=== PATIENT | female | born 1955 | race Caucasian/White ===

== ENCOUNTER 2017-02-19 10:09 | Inpatient (IN) ==
[2017-02-14 12:14] LABS: Appearance,Urine CLEAR; Bacteria,Urine 0 /hpf (0); Bilirubin,Urine NEG (NEG); Color,Urine YELLOW; Glucose,Urine (UA) NEGATIVE (NEG); Leukocyte Esterase,Urine 75 /uL (NEG); Nitrate,Urine NEG (NEG); Protein,Urine NEG (NEG); Specific Gravity,Urine 1.004 (1.000-1.035); Urine Blood NEG mg/dL (<0.03); Urine RBC 0 /hpf (0-1); Urine Squamous Epithelial Cell 1 /hpf (0-4); Urine Transitional Epi Cells < 1 /hpf (0-2); Urine WBC 5 /hpf (0-4); Urobilinogen,Urine NEG (NEG)
[2017-02-14 13:04] LABS: Basophils # (Auto) 0.1 K/mcL (0.0-0.3); Basophils % (Auto) 0.9 % (0.0-2.0); Eosinophils # (Auto) 0.7 K/mcL (0.0-0.7); Eosinophils % (Auto) 11.5 % (0.0-7.0); Granulocytes % (Auto) 54.1 % (38.0-78.0); Lymphocytes # (Auto) 1.7 K/mcL (1.5-4.8); Lymphocytes % (Auto) 26.6 % (15.5-49.0); Mean Cell Volume 93.2 fL (80.0-100.0); Mean Corpuscular HGB Conc 33.4 g/dL (31.0-36.0); Mean Corpuscular Hemoglobin 31.2 pg (26.0-34.0); Monocytes # (Auto) 0.4 K/mcL (0.1-0.9); Monocytes % (Auto) 6.9 % (1.0-12.0); Platelet Count 334 K/mcL (140-440); RBC 4.97 M/mcL (4.00-5.20); Red Cell Distribution Width 13.8 % (11.5-14.5)
[2017-02-14 13:16] LABS: Blood Urea Nitrogen 10 mg/dl (8-23)
[~2017-02-19 10:09] MED LIST: PREGABALIN 75 MG CAPSULE PO SCH; ceFAZolin 1 GM VIAL IV SCH; oxyCODONE 10 MG TAB.ER.12H PO SCH
[2017-02-19 11:49] LABS: Appearance,Urine CLEAR; Bilirubin,Urine NEG (NEG); Color,Urine YELLOW; Glucose,Urine (UA) NEGATIVE (NEG); Leukocyte Esterase,Urine NEG /uL (NEG); Nitrate,Urine NEG (NEG); Protein,Urine NEG (NEG); Specific Gravity,Urine 1.015 (1.000-1.035); Urine Blood NEG mg/dL (<0.03); Urobilinogen,Urine NEG (NEG)
[2017-02-19] MEDS ORDERED: SCOPOLAMINE 1 PATCH PATCH TOPICAL ONE (14:01)
[2017-02-19] MEDS ORDERED: MIDAZOLAM 5 MG/5 ML VIAL IV ONE (14:05)
[2017-02-19] MEDS ORDERED: ePHEDrine 50 MG/ML AMPUL IV ONE (14:05)
[2017-02-19] MEDS ORDERED: TRANEXAMIC ACID 1,000 MG/10 ML VIAL IV ONE ×2 (14:05→15:56)
[2017-02-19] MEDS ORDERED: PHENYLEPHRINE 10 MG/ML VIAL IV ONE (14:05)
[2017-02-19] MEDS ORDERED: BUPIVACAINE PF 0.5% 30 ML VIAL IJ ONE (14:05)
[2017-02-19] MEDS ORDERED: PROPOFOL 200 MG/20 ML VIAL IV ONE (14:05)
[2017-02-19] MEDS ORDERED: ONDANSETRON 4 MG/2 ML VIAL IV ONE (14:05)
[2017-02-19] MEDS ORDERED: EPINEPHrine 1 MG/ML AMPUL IV ONE (14:05)
[2017-02-19] MEDS ORDERED: DEXAMETHASONE 10 MG/ML VIAL IV ONE (14:05)
[2017-02-19] MEDS ORDERED: LIDOCAINE HCL/PF 100 MG/5 ML SYRINGE IV ONE (14:05)
[2017-02-19] MEDS ORDERED: GENTAMICIN SULFATE 800 MG/20 ML VIAL IR ONE (14:55)
[2017-02-19] MEDS ORDERED: MEPERIDINE 25 MG/ML SYRINGE IV PRN (15:26)
[2017-02-19] MEDS ORDERED: NALOXONE HCL 0.4 MG/ML VIAL IV PRN (15:26)
[2017-02-19] MEDS ORDERED: ONDANSETRON 4 MG/2 ML VIAL IV PRN ×2 (15:26→15:56)
[2017-02-19] MEDS ORDERED: LACTATED RINGERS 250 ML IV PRN (15:26)
[2017-02-19] MEDS ORDERED: PROMETHAZINE 25 MG/ML VIAL IV PRN (15:26)
[2017-02-19] MEDS ORDERED: IPRATROPIUM/ALBUTEROL 3 ML AMPUL.NEB NEB PRN (15:26)
[2017-02-19] MEDS ORDERED: ACETAMINOPHEN 1,000 MG/100 ML BOTTLE IV ONE (15:26)
[2017-02-19] MEDS ORDERED: FLUMAZENIL 0.1 MG/ML ML IV PRN (15:26)
[2017-02-19] MEDS ORDERED: fentaNYL 100 MCG/2 ML VIAL IV PRN (15:26)
[2017-02-19] MEDS ORDERED: LACTATED RINGERS 1,000 ML IV SCH (15:30)
[2017-02-19] MEDS ORDERED: KETOROLAC 30 MG, ROPIVACAINE HCL/PF 49.5 ML, EPINEPHrine 0.5 MG, 0.9 % SODIUM CHLORIDE ... IJ ONE (15:45)
[2017-02-19] MEDS ORDERED: FEXOFENADINE 180 MG TABLET PO PRN (15:52)
--- NOTE | 2017-02-19 15:52 | Brief Operative Note ---
Date of procedure: 02/19/17 Pre-op diagnosis: right knee oa Post-op diagnosis: same Procedure: right total knee arthroplasty Grafts/Implants: Yes Anesthesia: spinal Complications: none Surgeon: Ashwin Null Fuel Technician: Susan Shaikh Estimated blood loss (cc): 150 Tourniquet Time (Minutes): 56 Specimens Removed/Pathology: none sent Condition: stable Disposition: PACU
[2017-02-19] MEDS ORDERED: BENZOCAINE/MENTHOL 1 LOZENGE PO PRN (15:56)
[2017-02-19] MEDS ORDERED: FLEETS ADULT ENEMA PR PRN (15:56)
[2017-02-19] MEDS ORDERED: MAGNESIUM HYDROXIDE 30 ML ORAL.SUSP PO PRN (15:56)
[2017-02-19] MEDS ORDERED: HYDROcodone/APAP 10/325MG TABLET PO PRN (15:56)
[2017-02-19] MEDS ORDERED: POLYETHYLENE GLYCOL 3350 17 GM PACKET PO PRN (15:56)
[2017-02-19] MEDS ORDERED: ONDANSETRON ODT 4 MG TABLET SL PRN (15:56)
[2017-02-19] MEDS ORDERED: BISACODYL 10 MG SUPP.RECT PR PRN (15:56)
--- NOTE | 2017-02-19 16:10 | Operative Note ---
DATE OF OPERATION: 02/19/2017 PREOPERATIVE DIAGNOSIS: Degenerative joint disease, right knee. POSTOPERATIVE DIAGNOSIS: Degenerative joint disease, right knee. PROCEDURE: Right total knee arthroplasty. SURGEON: Chuy Null M.D. FIREFIGHTING EQUIPMENT SPECIALIST SURGEON: Susan Shaikh PA-C. ANESTHESIA: Spinal with LMA assist. ESTIMATED BLOOD LOSS: 150 mL. COMPLICATIONS: None noted. SPECIMENS REMOVED: None. DRAINS: None. TOURNIQUET TIME: 56 minutes at 300 mmHg. IMPLANTS: DePuy CMW2 bone cement 20 grams x4; DePuy Attune femoral posterior stabilized size 6, right narrow; DePuy Attune tibial base fixed bearing size 5 cemented; DePuy tibial insert fixed bearing posterior stabilized size 6, 5 mm AOX; DePuy patellar medialized dome 38 mm cemented AOX. INDICATIONS: The patient has had a long-standing history of worsening pain in the knee that has failed conservative treatment. Radiographs have confirmed advanced degenerative joint disease. After a long discussion about treatment options, the patient elected to proceed with a knee arthroplasty. The risks and benefits were discussed with the patient in detail including, but not limited to, the risks of anesthesia, problems with the heart or lungs related to anesthesia, infection, compromise or injury to the nerves and blood vessels, deep venous thrombosis, pulmonary embolism, pneumonia, continued pain after surgery, worsening pain or symptoms after surgery, swelling, loss of motion, instability, leg length discrepancy, and need for repeat surgery. DESCRIPTION OF PROCEDURE: The patient was seen in the pre-anesthesia waiting room where all questions were answered and the correct side and site were identified and marked. The patient was transferred to the operating room and administered the anesthetic and given pre-operative antibiotics. A time-out was then called. The extremity was prepped and draped, exsanguinated, and the tourniquet was inflated to 300 mmHg. A midline skin incision was then made with a standard medial parapatellar arthrotomy. Debridement of the menisci, ACL, and PCL was performed followed by balancing releases in the medial lateral plane. We then established intramedullary access to both the femur and tibia in a standard fashion. The femoral guide chet was initially placed with the distal femoral guide, pinned into place, and the distal femoral cut was performed and checked with a flat plate. We then turned our attention to the tibia. The intramedullary guide was placed with the proximal tibial cutting block. The block was appropriately positioned off the affected side, varus and valgus was checked with the extra-medullary guide, and the block was pinned into place. The proximal tibial cut was performed and the tibia was prepared for the tibial implant with appropriate rotation. The tibia, femur, and posterior compartment were debrided of osteophytes, loose bodies, and meniscal fragments We then used the gap balancing technique to balance extension with the first two cuts and good balancing was obtained with a 10 millimeter gap block. We turned our attention back to the femur and used the referencing block and implant to size appropriately. Using the gap balancing technique for the flexion space we set our rotation of the femur off the tibial cut. Anesthesia gave the patient 1 gram of Tranexamic Acid via an intravenous route. We placed the 4 in 1 cutting block and made anterior, posterior, and chamfer cuts. Box plasty cuts were then made in a standard fashion for the posterior stabilized prosthesis. We then completed osteophyte release and posterior capsule release from the posterior compartment. Trials were placed and we chose the polyethylene insert thickness that provided the best stability in all planes. With the trials in place, we did a measured resection for a resurfacing patella. We sized the patella and placed the patella trial and performed a lateral facetectomy with the saw and rongeur. Good tracking was obtained. We removed all trials, irrigated and dried all cut surfaces. We cemented the components into place including tibia, femur and patella. We placed a trial liner and held the knee in full extension with the patella compressed while the cement cured. We then removed all excess cement and placed the final polyethylene tibiofemoral component. Irrigation with 3 liters of antibiotic saline was then performed using jet-lavage. We let the tourniquet down and coagulated bleeding vessels. We injected a 100 cubic centimeter volume including Ropivacaine 49.25 cubic centimeters at 5 milligrams per cubic centimeter, Ketorolac 30 milligrams, and Epinephrine 0.5 milligrams into 100 cubic centimeters volume of normal saline. We closed the retinaculum with #2 Stratafix. We closed the subcutaneous tissue and skin in layers out to ezra in the skin. A sterile pressure dressing was applied. All needle and sponge counts were correct. The patient was transferred to the recovery room in stable condition. [place]:geri Job ID: [id number] Doc ID: [id number] Chuy Null MD
--- NOTE | 2017-02-19 16:52 | XRay Report ---
CLINICAL INFORMATION: Postop total knee prostheses COMPARISON: None. FINDINGS: Total knee prostheses is anatomically aligned. No osseous abnormality. Periarticular gas and soft tissue swelling seen - as expected. IMPRESSION: Negative Interpreted and Authenticated by: Ashwin Pierson 02/19/17
[2017-02-19] MEDS: KETOROLAC 15 MG/ML VIAL IV SCH ×2 (17:31→23:58)
[2017-02-19] MEDS: 0.9 % SODIUM CHLORIDE 1,000 ML IV SCH (17:32)
[2017-02-19] MEDS: HYDROmorphone 2 MG/ML SYRINGE IV PRN ×2 (17:41→21:34)
[2017-02-19] MEDS ORDERED: SENNOSIDES 1 TABLET PO SCH (21:00)
[2017-02-19] MEDS: ASPIRIN 325 MG ENTERIC COATED TABLET PO SCH (21:21)
[2017-02-19] MEDS: DOCUSATE SODIUM 100 MG CAPSULE PO SCH (21:21)
[2017-02-19] MEDS: CLINDAMYCIN 900 MG in 0.9 % SODIUM CHLORIDE 50 ML IV SCH (21:21)
[2017-02-19] MEDS: 0.9 % SODIUM CHLORIDE 10 ML SYRINGE IV SCH (21:39)
[2017-02-20] MEDS: 0.9 % SODIUM CHLORIDE 1,000 ML IV SCH ×2 (00:54→07:33)
[2017-02-20] MEDS: HYDROmorphone 2 MG/ML SYRINGE IV PRN ×2 (01:37→05:02)
[2017-02-20] MEDS: METHOCARBAMOL 750 MG TABLET PO PRN ×2 (05:02→11:02)
[2017-02-20] MEDS: KETOROLAC 15 MG/ML VIAL IV SCH ×2 (05:55→12:18)
[2017-02-20] MEDS: CLINDAMYCIN 900 MG in 0.9 % SODIUM CHLORIDE 50 ML IV SCH (05:55)
[2017-02-20] MEDS: 0.9 % SODIUM CHLORIDE 10 ML SYRINGE IV SCH ×2 (05:55→12:20)
--- NOTE | 2017-02-20 06:38 | Discharge Summary ---
Providers - Providers Patient information: Note initiated : 02/20/17 at 6:35 am Service Date, if different from initiated Date: [] Patient: Юлия Briggs 61 y/o F admitted on 02/19/17 for Right Total Knee Arthroplasty. Chief Complaint: [s/p right knee TKA] POD #1 s/p right TKA. Patient doing well this morning. Ambulated to the bathroom ok. Has been using the CPM machine as well. She reports minimal pain at this time and denies numbness and tingling in either lower extremity. Patient also denies chest pain, SOB, calf pain. No questions or concerns this morning. Discharge date: 02/20/17 Hospitalization Hospital course: Patient was brought to the OR yesterday for a right TKA. She was admitted overnight for pain control and observation. She has stayed for a total of one night without event or complication. Planning to d/c to home today in fair/good condition and will follow up in two weeks in the clinic postoperatively. Discharge diagnosis: knee osteoarthritis Exam - Exam Incision healing: Yes Incision draining: No Incision red: No Incision swollen: No Incision inflamed: No Clean and dry: Yes Weight bearing status: as tolerated (with assistive device) Range of motion: Full AROM left knee, b/l ankles and feet. Right knee 5 ext/30 fln Ortho Discharge - TKA - Patient Instructions Diet: Regular Diet Activity: activity as tolerated, ambulate with assistive device, weight bearing as tolerated Total Knee Protocol: For Total Knee: Start ROM CULLEN with stationary bike or rocking chair. Work on gaining full extension of knee. Posterior dislocation precautions provided. Hip abductor strengthening and gait training instructions provided. Apply Cryocuff as instructed. Dressing Care: Other (May shower tomorrow. Remove MATT wrap and gauze, leave Dermabond in place. Let water run off, pat dry, replace gauze and MATT) - Follow Up Plan Follow Up Appointments: Susan Shaikh PA-C [Physician [employer]] - 03/06/17 10:00 am Disposition: Home, Self-Care Prognosis: Fair Rehab Potential: Fair Overall status at discharge: patient is progressing back to baseline - Orders For Discharge Prescriptions: Aspirin [Ecotrin] 325 mg PO BID #60 tab.ec Methocarbamol [Robaxin] 750 mg PO Q6HP PRN #30 tab PRN Reason: Muscle Spasm Pending Studies Resuscitation Status Full Code Diet Regular Diet Start SatFeb 19 Dinner Aspirin (Ecotrin) 325 mg PO BID [facility] Last Admin: 02/19/17 21:21 Dose: 325 mg Docusate Sodium (Colace) 100 mg PO BID [facility] Last Admin: 02/19/17 21:21 Dose: 100 mg Hydromorphone HCl (Dilaudid) 0 mg IV Q2HP PRN PRN Reason: PAIN LEVEL > 6 Last Admin: 02/20/17 05:02 Dose: 1 mg Admin: 02/20/17 01:37 Dose: 1 mg Admin: 02/19/17 21:34 Dose: 1 mg Admin: 02/19/17 17:41 Dose: 1 mg Sodium Chloride (Sodium Chloride 0.9%) 1,000 mls @ 125 mls/hr IV .Q8H [facility] Last Admin: 02/20/17 00:54 Dose: Not Given Admin: 02/19/17 17:32 Dose: 125 mls/hr Ketorolac Tromethamine (Toradol) 15 mg IV Q6 [facility] Stop: 02/21/17 12:01 Last Admin: 02/20/17 05:55 Dose: 15 mg Admin: 02/19/17 23:58 Dose: 15 mg Admin: 02/19/17 17:31 Dose: 15 mg Methocarbamol (Robaxin) 750 mg PO Q6HP PRN PRN Reason: Muscle Spasm Last Admin: 02/20/17 05:02 Dose: 750 mg Senna (Senokot) 2 tab PO HS [facility] Last Admin: 02/19/17 21:21 Dose: 2 tab Sodium Chloride (Saline Flush) 10 ml IV Q8 [facility] Last Admin: 02/20/17 05:55 Dose: 10 ml Admin: 02/19/17 21:39 Dose: 10 ml Shift Summary 02/20/17 03:41 Shift Summary by Amy Mera A&O. Has been sleeping most of the night. Dressing to R knee CDI. Voided 450ml with PVR of 20ml. Gave 1mg dilaudid x2 with good results. Has scopolamine patch on. Up with SBA & FWW, steady gait. Ambulated in the halls x1. Tolerated CPM @ 30 degrees for 2 hours. IV in L wrist SL. VSS on 1L NC while sleeping. Calls appropriately. Pleasant and cooperative with all cares Initialized on 02/20/17 03:41 - END OF NOTE Exam Vital signs: Temp Pulse Resp BP Pulse Ox 97.5 F 92 H 12 99/63 98 02/20/17 04:00 02/20/17 04:00 02/20/17 04:00 02/20/17 04:00 02/20/17 04:00 Constitutional: no acute distress Cardiovascular: other (DP/PT pulses 2+ b/l. B/l LE NVI) Neurologic: sensation intact to touch (motor grossly intact b/l lower extremities)
[2017-02-20] MEDS ORDERED: ACETAMINOPHEN 325 MG TABLET PO PRN (07:32)
[2017-02-20] MEDS: HYDROmorphone 2 MG TABLET PO PRN ×2 (08:06→12:19)
[2017-02-20] MEDS ORDERED: POTASSIUM GLUCONATE 99 MG PO SCH (09:00)
[2017-02-20] MEDS ORDERED: MONTELUKAST 10 MG TABLET PO SCH (09:00)
[2017-02-20] MEDS ORDERED: CALCIUM CARB PO SCH (09:00)
[2017-02-20] MEDS ORDERED: PREGNENOLONE PO SCH (09:00)
[2017-02-20] MEDS ORDERED: PRASTERONE PO SCH (09:00)
[2017-02-20] MEDS: DOCUSATE SODIUM 100 MG CAPSULE PO SCH (10:09)
[2017-02-20] MEDS: ASPIRIN 325 MG ENTERIC COATED TABLET PO SCH (10:10)
== END 2017-02-20 13:30 | disposition home or self-care (01) | DRG 470 ==
LOC: MEDSUR 10:09
PROVIDERS: ADMIT Orthopaedic Surgery Sports Medicine; ATTEND Orthopaedic Surgery Sports Medicine